=== PATIENT | male | born 1975 | race Caucasian/White ===

== ENCOUNTER 2019-09-06 06:56 | Day surgery (SDC) | payer OTHER | END 2019-09-06 16:40 | disposition home or self-care (01) | LOC: CIR.AMB 06:56 | PROVIDERS: ATTEND Orthopaedic Surgery Hand Surgery | DX: S62.397A Other fracture of fifth metacarpal bone, left hand, initial encounter for closed fracture (principal); Z20.828 Contact with and (suspected) exposure to other viral communicable diseases ==